=== PATIENT | male | born 1990 | race Caucasian/White ===

== ENCOUNTER 2018-07-06 21:05 | Emergency (ER) | payer BC, SELFPAY ==
[2018-07-06 21:06] VITALS: BP 155/100; PULSE 89; RESP 18; TEMP 36.8; O2SAT 100; BMI 47.5
--- NOTE | 2018-07-06 21:28 | ED.VISSUMM ---
- ER Visit Summary Date of Service: 07/06/18 Chief Complaint: Facial pain History of Present Illness: The patient is a 28 M who states that yesterday she he began to have some right-sided facial pain. Worse tonight. He notes facial swelling and now feels a bump underneath the skin. He notes a little bit of dental sensitivity. He denies any fevers or nasal congestion or the nose. States he had similar feelings when he had sinusitis in the past. Physical Examination: Afebrile vital signs stable There is right maxillary facial swelling and erythema. There is no orbital or periorbital cellulitic changes. There is focal gum swelling above the first premolar tooth on the right. This is tender. There is no trismus. Emergency Department Course and Treatment: Patient will be started on Augmentin and a few [place]. He is to follow-up with dentistry. Impression: 1. Periapical abscess This note was generated with [employer] dictation software. It may contain incorrect words, spelling, and punctuation that were not noted in review of the chart prior to signing ED Disposition - Plan for ED Patient: Disposition: Home or Assisted Living Chief Complaint: Cold Sx Instructions: ED Abscess Tooth Prescriptions: Hydrocodone Bitart/Apap 5-325 [[place] 5MG-325MG] 1 tab PO Q6H PRN PRN 3 Days #10 tab PRN Reason: Pain Amox/Clavulanate Tablet [Augmentin Tablet] 875 mg PO Q12H #20 tab Additional Instructions: Follow Up with dentist as soon as possible
--- NOTE | 2018-07-06 21:32 | ED.DCSUM_ITS ---
- ER Visit Summary Date of Service: 07/06/18 Chief Complaint: Facial pain History of Present Illness: The patient is a 28 M who states that yesterday she he began to have some right-sided facial pain. Worse tonight. He notes facial swelling and now feels a bump underneath the skin. He notes a little bit of dental sensitivity. He denies any fevers or nasal congestion or the nose. States he had similar feelings when he had sinusitis in the past. Physical Examination: Afebrile vital signs stable There is right maxillary facial swelling and erythema. There is no orbital or periorbital cellulitic changes. There is focal gum swelling above the first premolar tooth on the right. This is tender. There is no trismus. Emergency Department Course and Treatment: Patient will be started on Augmentin and a few [place]. He is to follow-up with dentistry. Impression: 1. Periapical abscess This note was generated with [employer] dictation software. It may contain incorrect words, spelling, and punctuation that were not noted in review of the chart prior to signing ED Disposition - Plan for ED Patient: Disposition: Home or Assisted Living Chief Complaint: Cold Sx Instructions: ED Abscess Tooth Prescriptions: Hydrocodone Bitart/Apap 5-325 [[place] 5MG-325MG] 1 tab PO Q6H PRN PRN 3 Days #10 tab PRN Reason: Pain Amox/Clavulanate Tablet [Augmentin Tablet] 875 mg PO Q12H #20 tab Additional Instructions: Follow Up with dentist as soon as possible
[2018-07-06] MEDS: HYDROcodone Bitartrate/Apap 5/325 Tablet PO (21:51)
[2018-07-06 21:53] VITALS: BP 160/84; PULSE 68
== END 2018-07-06 21:55 | disposition home or self-care (01) ==
LOC: ED 21:38
PROVIDERS: Emergency Provider Emergency Medicine; Family Provider Family Medicine; PCP Family Medicine
DX: K04.7 Periapical abscess without sinus (principal); E66.9 Obesity, unspecified; Z87.891 Personal history of nicotine dependence
CPT/HCPCS: 99283